=== PATIENT | female | born 1990 | race Caucasian/White ===

== ENCOUNTER 2018-11-10 10:42 | Observation (INO) ==
[2018-11-10] MEDS ORDERED: HYDROmorphone PF Inj 2 MG/ML Vial IV.PUSH ONE ×3 (11:06→23:30)
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
[2018-11-10 12:03] LABS: Baso # (Auto) 0.2 th/mm3 (0.0-0.2); Baso % (Auto) 1.2 % (0.0-2.0); Eos # (Auto) 0.1 th/mm3 (0.0-0.4); Hematocrit 43.6 % (35.0-46.0); Hemoglobin 15.2 gm/dL (11.6-15.3); Lymph # (Auto) 4.4 th/mm3 (1.0-4.8); Lymph % (Auto) 32.1 % (9.0-44.0); Mean Corpuscular HGB Conc 34.8 % (32.0-36.0); Mean Corpuscular Hemoglobin 33.6 pg (27.0-34.0); Mean Corpuscular Volume 96.5 fL (80.0-100.0); Mean Platelet Volume 10.3 fL (7.0-11.0); Mono % (Auto) 7.6 % (0.0-8.0); Neut % (Auto) 58.1 % (16.0-70.0); Platelet Count 290 th/mm3 (150-450); Red Blood Count 4.52 mil/mm3 (4.00-5.30); White Blood Count 13.7 th/mm3 (4.0-11.0)
[2018-11-10 12:34] LABS: Carbon Dioxide 23.6 meq/L (21.0-32.0)
[2018-11-10 12:35] LABS: Potassium 3.8 meq/L (3.5-5.1)
--- NOTE | 2018-11-10 14:15 | CT ---
EXAM DATE: 11/10/2018 2:12 PM EST AGE/SEX: 28 years / Female INDICATIONS: head and neck pain CLINICAL DATA: This is the patient's initial encounter. Patient reports that signs and symptoms have been present for 1 day and indicates a pain score of 9/10. MEDICAL/SURGICAL HISTORY: None. Appendectomy. Cholecystectomy. section. RADIATION DOSE: 56.35 CTDI (mGy) COMPARISON: No prior exams available for comparison. TECHNIQUE: CT of the head without contrast. Using automated exposure control and adjustment of the mA and/or kV according to patient size, radiation dose was kept as low as reasonably achievable to ob tain optimal diagnostic quality images. DICOM format image data is available electronically for revi ew and comparison. FINDINGS: Cerebrum: The ventricles are normal for age. No evidence of midline shift, mass lesion, hemorrhage or acute infarction. No extraaxial fluid collections are seen. Posterior Fossa: The cerebellum and brainstem are intact. The 4th ventricle is midline. The cerebe llopontine angle is unremarkable. Extracranial: The visualized portion of the orbits is intact. Skull: The calvaria is intact. No evidence of skull fracture. CONCLUSION: 1. Negative for acute process . Electronically signed by: Timoteo Lacy MD Board Certified Radiologist 11/10/2018 2:13 PM EST
--- NOTE | 2018-11-10 14:35 | CT ---
EXAM DATE: 11/10/2018 2:18 PM EST AGE/SEX: 28 years / Female INDICATIONS: Head and neck pain CLINICAL DATA: This is the patient's initial encounter. Patient reports that signs and symptoms have been present for 1 day and indicates a pain score of 10/10. MEDICAL/SURGICAL HISTORY: None. Appendectomy. section. Cholecystectomy. RADIATION DOSE: 17.28 CTDI (mGy) COMPARISON: No prior exams available for comparison. TECHNIQUE: Contiguous axial images were obtained using helical multirow detector technique. The vol umetric data was post-processed with multiplanar reconstruction in oblique axial, sagittal, and coron al planes. Using automated exposure control and adjustment of the mA and/or kV according to patient s ize, radiation dose was kept as low as reasonably achievable to obtain optimal diagnostic quality diamond ges. DICOM format image data is available electronically for review and comparison. FINDINGS: Vertebrae: Normal vertebral body height. Alignment: Reversal the normal cervical lordosis. C2-3: The bony spinal canal is normal in size. No evidence of disc bulge or herniation. The neural foramina are bilaterally patent. C3-4: The bony spinal canal is normal in size. No evidence of disc bulge or herniation. The neural foramina are bilaterally patent. C4-5: The bony spinal canal is normal in size. No evidence of disc bulge or herniation. The neural foramina are bilaterally patent. C5-6: The bony spinal canal is normal in size. No evidence of disc bulge or herniation. The neural foramina are bilaterally patent. C6-7: The bony spinal canal is normal in size. No evidence of disc bulge or herniation. The neural foramina are bilaterally patent. C7-T1: The bony spinal canal is normal in size. No evidence of disc bulge or herniation. The neura l foramina are bilaterally patent. CONCLUSION: 1. Reversal the normal cervical adenosis although otherwise negative. 2. If Symptoms persists MRI may be of benefit. Electronically signed by: Timoteo Lacy MD Board Certified Radiologist 11/10/2018 2:34 PM EST
[2018-11-10] MEDS ORDERED: Orphenadrine Inj 60 MG/2 ML Ampul IM ONE (15:32)
[2018-11-10] MEDS ORDERED: Acetaminophen 325 MG Tablet PO PRN (18:53)
[2018-11-10] MEDS ORDERED: Bisacodyl 10 MG Supp RECTAL PRN (18:53)
--- NOTE | 2018-11-10 18:53 | P.HPIM ---
History of Present Illness Service: [facility] Primary Care Physician: UNKNOWN Chief Complaint: severe neck pain/pressure History of Present Illness: This is a 28 years old, young female with no significant past medical history but surgical history of gall bladder removal , appendectomy and section x 1, who presented to the ED for severe neck pain and pressure that radiates to her head. Patient stated she woke up with a neck pain around 7 am, went to work, used heating pad, but never get relieved. Patient stated that the pain started bhind her neck radiating to her head with a pressure feeling at a scale of 110/10. Patient stated her face feels hot and turns cold again after taking pain medication. Josiah stated she has a history of migraine but nothing compares. The pain was associated with nausea and vomiting x3. Patient denies any trauma or injury in the neck area. Patient denies any other health history. At the moment, pain os controlled with dilaudid. pt admitted smoking of 1 ppd x at least 10 years, C/o of some SOB and occasional coughing. Denies any coughing up sputum. Pt denies any fever or chills. Patient also admitted some indigestion problems from drinking too much soda and coffee. nurse reported she just gave her Dilaudid, and pain is controlled. Review of Systems Review of Systems: all other systems reviewed are negative [facility] Medical History Medical History Patient denies medical problems (Acute) Surgical History Surgical History H/O section (Acute) Hx of appendectomy (Acute) Hx of cholecystectomy (Acute) Family History Family History Father CAD (coronary artery disease) S/P CABG x 5 DM (diabetes mellitus) Mother HTN, age 0-18 DM2 (diabetes mellitus, type 2) Social History Social History Smoking Status: Never smoker How Often Do You Have a Drink Containing Alcohol: Monthly or less Recent Travel in [facility] within the Last 8 Weeks: No Recent Out of Country Travel within the Last 8 Weeks: No Immunization History Tetanus Immunization: <5 Years Medications and Allergies Allergies Allergy/AdvReac Type Severity Reaction Status Date / Time No Known Allergies Allergy Verified 11/10/18 11:06 Home Medications Medication Instructions Recorded Confirmed Type amoxicillin 875 mg PO BID 11/10/18 11/10/18 History Physical Exam Vital signs: Vital Signs 11/10/18 10:45 11/10/18 14:47 11/10/18 17:00 Temperature 97.9 F Pulse Rate 91 H 62 70 Respiratory Rate 22 17 17 Blood Pressure 150/99 H 115/75 134/76 Pulse Oximetry 98 98 97 Intake & Output 11/09/18 11/10/18 11/10/18 18:59 06:59 18:59 Weight 88.451 kg Narrative: GENERAL: well developed, well nourished, young female in no acute distress SKIN: Warm and dry. HEAD: Atraumatic. Normocephalic. EYES: Pupils equal and round. No scleral icterus. No injection or drainage. ENT: No nasal bleeding or discharge. Mucous membranes pink and moist. NECK: Trachea midline. No JVD. CARDIOVASCULAR: Regular rate and rhythm. RESPIRATORY: No accessory muscle use. Clear to auscultation. Breath sounds equal bilaterally. GASTROINTESTINAL: Abdomen soft, non-tender, nondistended. Hepatic and splenic margins not palpable. MUSCULOSKELETAL: Extremities without clubbing, cyanosis, or edema. No obvious deformities. neck with limited ROM NEUROLOGICAL: Awake and alert. No obvious cranial nerve deficits. Motor grossly within normal limits. Five out of 5 muscle strength in the arms and legs. Normal speech. PSYCHIATRIC: Appropriate mood and affect; insight and judgment normal. Results Labs CBC & Chem 7: 11/10/18 11:20 11/10/18 11:20 Imaging Impressions Cervical Spine X-Ray 11/10/18 11:06 CONCLUSION: Negative cervical spine series. Radiopaque foreign body making MRI contraindicated. Cervical Spine CT 11/10/18 12:19 CONCLUSION: 1. Reversal the normal cervical adenosis although otherwise negative. 2. If Symptoms persists MRI may be of benefit. Head CT 11/10/18 12:19 CONCLUSION: 1. Negative for acute process . Caprini VTE Risk Assessment Caprini VTE Risk Assessment: No/Low Risk (score <= 1) Caprini Risk Assessment Model: Point Value = 1 Point Value = 2 Point Value = 3 Point Value = 5 Age 41-60 Minor surgery BMI > 25 kg/m2 Swollen legs Varicose veins or History of unexplained or recurrent spontaneous Oral contraceptives or hormone replacement Sepsis (< 1 month) Serious lung disease, including pneumonia (< 1 month) Abnormal pulmonary function Acute myocardial infarction Congestive heart failure (< 1 month) History of inflammatory bowel disease Medical patient at bed rest Age 61-74 Arthroscopic surgery Major open surgery (> 45 min) Laparoscopic surgery (> 45 min) Malignancy Confined to bed (> 72 hours) Immobilizing plaster cast Central venous access Age >= 75 History of VTE Family history of VTE Factor V Leiden Prothrombin [id number] Lupus anticoagulant Anticardiolipin antibodies Elevated serum homocysteine Heparin-induced thrombocytopenia Other congenital or acquired thrombophilia Stroke (< 1 month) Elective arthroplasty Hip, pelvis, or leg fracture Acute spinal cord injury (< 1 month) Prophylaxis Regimen: Total Risk Factor Score Risk Level Prophylaxis Regimen 0-1 Low Early ambulation 2 Moderate Order ONE of the following: *Sequential Compression Device (SCD) *Heparin 5000 units SQ BID 3-4 Higher Order ONE of the following medications: *Heparin 5000 units SQ TID *Enoxaparin/Lovenox 40 mg SQ daily (WT < 150 kg, CrCl > 30 mL/min) *Enoxaparin/Lovenox 30 mg SQ daily (WT < 150 kg, CrCl > 10-29 mL/min) *Enoxaparin/Lovenox 30 mg SQ BID (WT < 150 kg, CrCl > 30 mL/min) AND/OR *Sequential Compression Device (SCD) 5 or more Highest Order ONE of the following medications: *Heparin 5000 units SQ TID (Preferred with Epidurals) *Enoxaparin/Lovenox 40 mg SQ daily (WT < 150 kg, CrCl > 30 mL/min) *Enoxaparin/Lovenox 30 mg SQ daily (WT < 150 kg, CrCl > 10-29 mL/min) *Enoxaparin/Lovenox 30 mg SQ BID (WT < 150 kg, CrCl > 30 mL/min) AND *Sequential Compression Device (SCD) Assessment and Plan Plan This is a 28 years old, young female with no significant past medical history but surgical history of gall bladder removal, appendectomy and section x 1, who presented to the ED for severe neck pain and pressure that radiates to her head. Acute Neck Pain Leukocytosis -CT Cervical Spine:Reversal the normal cervical adenosis although otherwise negative. -Head CT: negative for acute process -Cervical Spine Xray: negative -Lumbar Punture Tap, attempted at the bedside, failed. Patient will be admitted for IR Ultrasoi=und guided LP -send urine for UA with C & S if indiocated -monitor CBC and BMP, check in am URI Symptoms Cough/Congestion Tobacco dependence -counseled on tobacco cessation -add duonebs treatment prn -CXRay ordered -monitor respiratory status GERD -add pepcid DVT prophylaxis: ambulatory, SCD, avoid oral anticoagulation for planned procedure, LP
--- NOTE | 2018-11-10 19:20 | XR ---
EXAM DATE: 11/10/2018 7:18 PM EST AGE/SEX: 28 years / Female INDICATIONS: Short of breath. CLINICAL DATA: This is the patient's initial encounter. Patient reports that signs and symptoms have been present for 1 day and indicates a pain score of 0/10. MEDICAL/SURGICAL HISTORY: None. None. COMPARISON: No prior exams available for comparison. FINDINGS: A single AP view of the chest demonstrates the lungs to be symmetrically aerated without evidence of mass, infiltrate or effusion. The cardiomediastinal contours are unremarkable. Osseous structures a re intact. CONCLUSION: No acute cardiopulmonary disease. Electronically signed by: Alexis Connell MD Board Certified Radiologist 11/10/2018 7:19 PM EST
[2018-11-10] MEDS: Sodium Chloride 0.45 % Inj 1,000 ML IV.CONT SCH (22:02)
[2018-11-10] MEDS: Famotidine 20 MG Tablet PO SCH (22:03)
[2018-11-10] MEDS: Senna/Docusate Sodium 8.6/50 MG Tablet PO SCH (22:03)
[2018-11-10 23:01] LABS: Bilirubin,Urine Negative (Negative); Clarity,Urine Hazy (Clear); Color,Urine Yellow (Yellw/Straw); Glucose,Urine (UA) Negative (Negative); Leukocyte Esterase,Urine Negative (Negative); Mucus,Urine Many /lpf (Occasional); Nitrite,Urine Negative (Negative); Specific Gravity,Urine 1.017 (1.002-1.035); Squamous Epithelial Cell,Urine 15 /hpf (0-5)
[2018-11-11 08:03] LABS: Alanine Aminotransferase 55 U/L (10-53); Albumin 3.4 g/dL (3.4-5.0); Anion Gap 6 meq/L (5-15); Aspartate Aminotransferase 56 U/L (15-37); Blood Urea Nitrogen 11 mg/dL (7-18); Calcium 8.3 mg/dL (8.5-10.1); Carbon Dioxide 27.1 meq/L (21.0-32.0); Chloride 107 meq/L (98-107); Glomerular Filtration Rate 83 mL/min (>89); Glucose,Random 92 mg/dL (74-106); Potassium 3.7 meq/L (3.5-5.1); Sodium 140 meq/L (136-145)
[2018-11-11 08:06] LABS: Alkaline Phosphatase 103 U/L (45-117); Total Protein 6.8 g/dL (6.4-8.2)
[2018-11-11] MEDS: Senna/Docusate Sodium 8.6/50 MG Tablet PO SCH ×2 (09:53→21:43)
[2018-11-11 11:07] LABS: Activated Partial Thrombo Time 28.3 sec (23.4-31.7); INR 1.1 Ratio; Prothrombin Time 11.2 sec (9.8-11.6)
[2018-11-11] MEDS: Sodium Chloride 0.45 % Inj 1,000 ML IV.CONT SCH ×2 (11:13→22:40)
[2018-11-11] MEDS: HYDROmorphone PF Inj 2 MG/ML Vial IV.PUSH PRN ×2 (11:13→21:30)
--- NOTE | 2018-11-11 12:51 | P.RAD ---
Post Procedure Progress Note - Procedure Information Procedure Date: 11/11/18 Supervising Radiologist: Mejia Devries MD Estimated blood loss (mL): 0 - Plan of Activity Patient to Unit: Nursing Unit Patient Condition: Good See PACS Report for procedural detail/treatment.
[2018-11-11 13:32] LABS: Total Protein,CSF 33.4 mg/dL (15.0-45.0)
--- NOTE | 2018-11-11 13:58 | P.PNIM ---
Subjective Interval history: The patient was resting comfortably in bed. She had the LP earlier. She said the Dilaudid was working but not taking the pressure away. She said the pain was located at the base of her skull and seem to be radiating upwards. She had an episode of vomiting last night. She says she is prone to migraines. Physical Exam Vital signs: Vital Signs 11/10/18 14:47 11/10/18 17:00 11/10/18 19:00 Temperature Pulse Rate 62 70 72 Respiratory Rate 17 17 20 Blood Pressure 115/75 134/76 168/77 H Pulse Oximetry 98 97 98 11/10/18 20:00 11/10/18 23:52 11/11/18 04:00 Temperature 98.5 F 98.6 F 98 F Pulse Rate 55 L 64 70 Respiratory Rate 20 20 20 Blood Pressure 109/53 L 111/62 115/59 L Pulse Oximetry 98 99 93 L 11/11/18 07:58 Temperature 98.6 F Pulse Rate 55 L Respiratory Rate 16 Blood Pressure 105/57 L Pulse Oximetry 98 Intake & Output 11/10/18 11/11/18 11/11/18 18:59 06:59 18:59 Intake Total 240 / 240 1000 / 1000 Balance 240 / 240 1000 / 1000 Weight 88.451 kg Intake: IV 1000 / 1000 1/2 Normal Saline Inj 1,000 ML 1000 / 1000 @ 75 mls/hr IV.CONT .[id number] [facility] Rx#:[id number] Oral 240 / 240 Other: # Voids 2 # [place] 1 Narrative: GENERAL: well developed, well nourished, young female in no acute distress. SKIN: Warm and dry. HEAD: Atraumatic. Normocephalic. EYES: Pupils equal and round. No scleral icterus. No injection or drainage. ENT: No nasal bleeding or discharge. Mucous membranes pink and moist. NECK: Trachea midline. No JVD. CARDIOVASCULAR: Regular rate and rhythm. RESPIRATORY: No accessory muscle use. Clear to auscultation. Breath sounds equal bilaterally. GASTROINTESTINAL: Abdomen soft, non-tender, nondistended. Hepatic and splenic margins not palpable. MUSCULOSKELETAL: Extremities without clubbing, cyanosis, or edema. No obvious deformities. [place] with limited ROM s/t pain. NEUROLOGICAL: Awake and alert. No obvious cranial nerve deficits. Motor grossly within normal limits. Five out of 5 muscle strength in the arms and legs. Normal speech. PSYCHIATRIC: Appropriate mood and affect; insight and judgment normal. Results Labs CBC & Chem 7: 11/10/18 11:20 11/11/18 07:17 Imaging Imaging: Impressions Chest X-Ray 11/10/18 00:00 CONCLUSION: No acute cardiopulmonary disease. Cervical Spine CT 11/10/18 12:19 CONCLUSION: 1. Reversal the normal cervical adenosis although otherwise negative. 2. If Symptoms persists MRI may be of benefit. Head CT 11/10/18 12:19 CONCLUSION: 1. Negative for acute process . Assessment and Plan Plan This is a 28 years old female with no significant past medical history but surgical history of gall bladder removal, appendectomy and section x 1 , who presented to the ED for severe neck pain and pressure that radiates to her head. Acute Neck Pain/Leukocytosis -CT Cervical Spine:Reversal the normal cervical adenosis although otherwise negative. -Head CT: negative for acute process -Cervical Spine Xray: negative -Lumbar Puncture performed by IR 11/11. Follow results. -send urine for UA with C & S. -monitor CBC. -Medrol dose pack for now. ? atypical migraine. -PT eval. -neurology consult if no improvement. URI Symptoms Cough/Congestion Tobacco dependence -counseled on tobacco cessation -add Duonebs prn -monitor respiratory status -Medrol dose pack as above. DVT prophylaxis: ambulatory, SCD Progress Note: Quality VTE Deep Vein Thrombosis/Pulmonary Embolism Present on Admission: No
[2018-11-11 14:03] LABS: Lymphocytes, CSF 100 %
[2018-11-11 14:17] LABS: RBC on Tube 4 20 /mm3
[2018-11-11 14:18] LABS: Neutrophils,CSF 0 %
[2018-11-11 16:00] LABS: Baso # (Auto) 0.1 th/mm3 (0.0-0.2); Baso % (Auto) 0.8 % (0.0-2.0); Eos # (Auto) 0.1 th/mm3 (0.0-0.4); Eos % (Auto) 1.7 % (0.0-4.0); Hematocrit 39.7 % (35.0-46.0); Hemoglobin 13.7 gm/dL (11.6-15.3); Lymph # (Auto) 2.3 th/mm3 (1.0-4.8); Lymph % (Auto) 29.7 % (9.0-44.0); Mean Corpuscular HGB Conc 34.6 % (32.0-36.0); Mean Corpuscular Hemoglobin 32.5 pg (27.0-34.0); Mean Corpuscular Volume 93.9 fL (80.0-100.0); Mean Platelet Volume 9.2 fL (7.0-11.0); Mono # (Auto) 0.7 th/mm3 (0.0-0.9); Mono % (Auto) 9.3 % (0.0-8.0); Neut # (Auto) 4.5 th/mm3 (1.8-7.7); Neut % (Auto) 58.5 % (16.0-70.0); Platelet Count 225 th/mm3 (150-450); Red Blood Count 4.23 mil/mm3 (4.00-5.30); Red Cell Distribution Width 13.5 % (11.6-17.2); White Blood Count 7.7 th/mm3 (4.0-11.0)
[2018-11-11] MEDS: Famotidine 20 MG Tablet PO SCH (21:21)
[2018-11-12] MEDS: HYDROmorphone PF Inj 2 MG/ML Vial IV.PUSH PRN ×2 (07:46→11:53)
--- NOTE | 2018-11-12 07:49 | IR ---
EXAM DATE: 11/11/2018 5:52 PM EST AGE/SEX: 28 years / Female INDICATIONS: Patient presents with history of neck pressure that radiates to the head in need of a L umbar Puncture with opening pressures. CLINICAL DATA: This is the patient's initial encounter. Patient reports that signs and symptoms have been present for 1 day and indicates a pain score of 3/10. MEDICAL/SURGICAL HISTORY: None. section. Appendectomy. Cholecystectomy. COMPARISON: No prior exams available for comparison. FLUORO TIME (min): 0.17 IMAGE SERIES: 1 RADIATION DOSE: [id number] DAP ACCESS SITE: L3-4 LUMBAR PUNCTURE TIME: 1245 hours OPENING PRESSURE: 22 cm of water CLOSING PRESSURE: not requested FLUID: Total volume of 14.5 cc of clear fluid was removed. Fluid was sent to lab for ordered studies. ; . . PROCEDURE: 1. Fluoroscopic guided lumbar puncture. The risks, benefits and alternatives to the procedure were explained and verbal and written consent w as obtained. The site was prepped in sterile fashion. Full sterile technique was used, including ca p, mask, sterile gloves and gown and a large sterile sheet. Hand hygiene and 2% chlorhexidine and/or betadine/alcohol prep was utilized per protocol for cutaneous antisepsis. The skin and subcutaneous tissues were infiltrated with local anesthetic solution. With fluoroscopic guidance the lumbar thecal sac was punctured at the level above. The fluid describ ed above was removed without difficulty. The patient tolerated the procedure well and there were no complications. CONCLUSION: 1. Uncomplicated fluoroscopically guided lumbar puncture. Electronically signed by: Mejia Devries MD Board Certified Radiologist 11/12/2018 7:48 AM EST
[2018-11-12] MEDS: Senna/Docusate Sodium 8.6/50 MG Tablet PO SCH (10:09)
[2018-11-12 11:33] LABS: Baso % (Auto) 0.2 % (0.0-2.0); Hematocrit 42.7 % (35.0-46.0); Hemoglobin 14.4 gm/dL (11.6-15.3); Lymph # (Auto) 1.1 th/mm3 (1.0-4.8); Lymph % (Auto) 10.6 % (9.0-44.0); Mean Corpuscular HGB Conc 33.8 % (32.0-36.0); Mean Corpuscular Hemoglobin 32.6 pg (27.0-34.0); Mean Corpuscular Volume 96.5 fL (80.0-100.0); Mean Platelet Volume 9.6 fL (7.0-11.0); Mono # (Auto) 0.5 th/mm3 (0.0-0.9); Mono % (Auto) 4.8 % (0.0-8.0); Neut # (Auto) 8.5 th/mm3 (1.8-7.7); Neut % (Auto) 84.4 % (16.0-70.0); Platelet Count 279 th/mm3 (150-450); Red Blood Count 4.43 mil/mm3 (4.00-5.30); Red Cell Distribution Width 13.3 % (11.6-17.2); White Blood Count 10.1 th/mm3 (4.0-11.0)
--- NOTE | 2018-11-12 11:36 | P.PNIM ---
Subjective Interval history: The patient was feeling a lot better. She said that before the pressure sensation in her head she was having a sharp pain on the right side of the top of her head. She was wondering what she should take for migraines in the future. She said she would be interested in trying a muscle spasm at night for her neck discomfort. Discussed with nursing. Physical Exam Vital signs: Vital Signs 11/11/18 16:00 11/11/18 19:42 11/11/18 22:00 Temperature 95.5 F L 98.2 F Pulse Rate 60 55 L Respiratory Rate 18 14 16 Blood Pressure 110/60 109/59 L Pulse Oximetry 99 98 11/12/18 00:00 11/12/18 04:00 11/12/18 07:50 Temperature 98.3 F 98.3 F Pulse Rate 48 L 48 L 62 Respiratory Rate 16 16 16 Blood Pressure 114/67 111/62 135/77 Pulse Oximetry 97 98 97 11/12/18 08:00 Temperature 97.9 F Pulse Rate 62 Respiratory Rate 16 Blood Pressure 117/61 Pulse Oximetry 96 Intake & Output 11/11/18 11/12/18 11/12/18 18:59 06:59 18:59 Intake Total 1000 / 1000 400 / 400 Balance 1000 / 1000 400 / 400 Intake: IV 1000 / 1000 400 / 400 1/2 Normal Saline Inj 1,000 ML 1000 / 1000 400 / 400 @ 75 mls/hr IV.CONT .[id number] FOR[facility] Rx#:[id number] Other: Date of Last Bowel Movement 11/10/18 Narrative: GENERAL: well developed, well nourished, young female in no acute distress. SKIN: Warm and dry. HEAD: Atraumatic. Normocephalic. EYES: Pupils equal and round. No scleral icterus. No injection or drainage. ENT: No nasal bleeding or discharge. Mucous membranes pink and moist. NECK: Trachea midline. No JVD. Nontender to palpation. CARDIOVASCULAR: Regular rate and rhythm. RESPIRATORY: No accessory muscle use. Clear to auscultation. Breath sounds equal bilaterally. GASTROINTESTINAL: Abdomen soft, non-tender, nondistended. Hepatic and splenic margins not palpable. MUSCULOSKELETAL: Extremities without clubbing, cyanosis, or edema. No obvious deformities. NEUROLOGICAL: Awake and alert. No obvious cranial nerve deficits. Motor grossly within normal limits. Five out of 5 muscle strength in the arms and legs. Full ROM of neck. Normal speech. PSYCHIATRIC: Appropriate mood and affect; insight and judgment normal. Results Labs CBC & Chem 7: 11/11/18 15:45 11/11/18 07:17 Labs: Microbiology 11/11/18 12:45 Lumbar Puncture Gram Stain - Final 11/11/18 12:45 Lumbar Puncture CSF Culture - Preliminary No growth in 24 hours 11/11/18 12:45 Cerebral Spinal Fluid - Lumbar Puncture Fungal Smear - Final No fungal elements seen Imaging Imaging: Impressions Lumbar Puncture Fluoroscopy 11/11/18 08:26 CONCLUSION: 1. Uncomplicated fluoroscopically guided lumbar puncture. Assessment and Plan Plan This is a 28 years old female with no significant past medical history but surgical history of gall bladder removal, appendectomy and section x 1 , who presented to the ED for severe neck pain and pressure that radiates to her head. Acute Neck Pain/Leukocytosis/Migraine -CT Cervical Spine:Reversal the normal cervical adenosis although otherwise negative. -Head CT: negative for acute process -Cervical Spine Xray: negative -Lumbar Puncture performed by IR 11/11. Follow results. 15 lymphocytes noted. Protein and glucose WNL. Following cultures. Follow up with PCP in one week. -send urine for UA with C & S. Negative. -monitor CBC. Leukocytosis resolved. -Medrol dose pack for now. ? atypical migraine. Improved. D/c on prednisone and Flexeril. Ibuprofen or Excedrin as needed for migraines. URI Symptoms Cough/Congestion Tobacco dependence -counseled on tobacco cessation -add Duonebs prn -monitor respiratory status -prednisone. DVT prophylaxis: ambulatory, SCD Discharge Planning: d/c home Progress Note: Quality VTE Deep Vein Thrombosis/Pulmonary Embolism Present on Admission: No
[2018-11-12 11:55] LABS: Anion Gap 10 meq/L (5-15); Blood Urea Nitrogen 8 mg/dL (7-18); Carbon Dioxide 25.8 meq/L (21.0-32.0); Chloride 102 meq/L (98-107); Glomerular Filtration Rate Greater Than 89 mL/min (>89); Glucose,Random 106 mg/dL (74-106); Potassium 3.7 meq/L (3.5-5.1); Sodium 138 meq/L (136-145)
[2018-11-12 21:59] LABS: Enterovirus (PCR)Source CSF; Enterovirus RNA Qual (PCR) Negative (Negative)
== END 2018-11-12 14:38 | disposition home or self-care (01) ==
LOC: NEPC 10:42 → NEDA 10:42 → NEPHCDU 21:00
PROVIDERS: ADMIT Hospitalist; ATTEND Hospitalist
DX: F17.210 Nicotine dependence, cigarettes, uncomplicated; Z90.49 Acquired absence of other specified parts of digestive tract; D72.829 Elevated white blood cell count, unspecified; K21.9 Gastro-esophageal reflux disease without esophagitis; Z82.49 Family history of ischemic heart disease and other diseases of the circulatory system; K30 Functional dyspepsia; J06.9 Acute upper respiratory infection, unspecified; M54.2 Cervicalgia; Z83.3 Family history of diabetes mellitus; G43.009 Migraine without aura, not intractable, without status migrainosus; Z98.891 History of uterine scar from previous surgery
CPT/HCPCS: 62270; 70450; 71010; 71045; 72040; 72125; 77003; 80048; 80053; 81001; 82040; 82042; 82784; 82945; 83615; 84155; 84157; 84703; 85025; 85610; 85730; 87070; 87102; 87205; 87206; 87496; 87497; 87498; 89051; 90774; 90775; 90776; 90784; 96374; 96375; 96376; 97162; 99285; C8952; G0378; G8987; G8988; J1170; J2405; J7509